=== PATIENT | male | born 1935 | race Two or more races ===

== ENCOUNTER 2017-05-25 09:01 | Inpatient (IN) | payer MEDICARE ==
[~2017-05-25] VITALS: Ht 177.8 cm; Wt 87.1 kg
--- NOTE | 2017-05-25 09:11 | NUR ---
[facility]A FROM A [facility] DT SOB X 2 DAYS. PATIENT IS SATING 89% ON ROOM AIR. PATIENT IS AAO4. APPEARS IN MILD DISTRESS. PT WAS PLACED ON O2 VIA NC- O2 SAT 94%. PATIENT IS AFEBRILE. VSS.
--- NOTE | 2017-05-25 09:12 | NUR ---
MD CHU AT
[2017-05-25] MEDS ORDERED: ALBUTEROL FS 2.5 MG/3 ML VIAL.NEB ONE (09:28)
[2017-05-25] MEDS ORDERED: IPRATROPIUM NEB FS 0.5 MG/2.5 ML AMPUL.NEB ONE (09:28)
[2017-05-25 09:29] LABS: BASOPHILS % (AUTO) 0.7 % (0.0-2.0); EOSINOPHILS # (AUTO) 0.3 /CMM (0.0-0.7); EOSINOPHILS % (AUTO) 4.5 % (0.0-6.0); HEMATOCRIT 42 % (39-51); HEMOGLOBIN 13.6 g/dL (13.5-17.5); LYMPHOCYTES # (AUTO) 1.7 /CMM (0.8-4.8); LYMPHOCYTES % (AUTO) 25.9 % (20.0-44.0); MEAN CORPUSCULAR HEMOGLOBIN 33 PG (26.0-33.0); MEAN CORPUSCULAR HGB CONC 32 g/dl (31.0-36.0); MEAN CORPUSCULAR VOLUME 103 fL (80-96); MONOCYTES # (AUTO) 0.7 /CMM (0.1-1.30); MONOCYTES % (AUTO) 10.1 % (2.0-12.0); NEUTROPHILS # (AUTO) 3.8 /CMM (1.8-8.9); NEUTROPHILS % (AUTO) 58.8 % (43.0-81.0); PLATELET COUNT (AUTO) 111 /CMM (150-450); RDW COEFFICIENT OF VARIATION 18.1 (11.5-15.0); RED BLOOD CELL COUNT(AUTO) 4.07 MIL/uL (4.5-6.0); WHITE BLOOD COUNT (AUTO) 6.5 K/uL (4.3-11.0)
[2017-05-25] MEDS ORDERED: IPRATROPIUM NEB FS 0.5 MG/2.5 ML AMPUL.NEB NEB ONE (09:30)
[2017-05-25] MEDS ORDERED: ALBUTEROL FS 2.5 MG/3 ML VIAL.NEB NEB ONE (09:30)
[2017-05-25] MEDS ORDERED: METF500T4 PO (09:41)
[2017-05-25] MEDS ORDERED: WARF5TAB6 PO (09:41)
[2017-05-25] MEDS ORDERED: LEVO150T8 PO (09:41)
[2017-05-25] MEDS ORDERED: DIGO125T PO (09:41)
[2017-05-25] MEDS ORDERED: POTA20TA83 PO (09:41)
[2017-05-25] MEDS ORDERED: CARI350T27 PO (09:41)
[2017-05-25] MEDS ORDERED: FURO40TA5 PO (09:41)
[2017-05-25] MEDS ORDERED: ALLO300T2 PO (09:41)
[2017-05-25] MEDS ORDERED: CARV25TA2 PO (09:41)
[2017-05-25 09:47] LABS: INR 3.95 (0.87-1.13); PROTHROMBIN TIME 41.1 SECS (9.5-12.7)
[2017-05-25] MEDS ORDERED: NITROGLYCERIN PACKET 1 GM PACKET TD ONE (10:00)
[2017-05-25] MEDS ORDERED: FUROSEMIDE 40 MG/4 ML VIAL IV ONE (10:00)
--- NOTE | 2017-05-25 10:00 | NUR ---
RN NOTES REPORT RECEIVED FROM INSTRUMENTATION TECHNOLOGISTTONY MEZA. WILL WAIT FOR PATIENT ON UNIT.
[2017-05-25] MEDS ORDERED: FUROSEMIDE 40 MG/4 ML VIAL ONE (10:02)
[2017-05-25] MEDS ORDERED: NITROGLYCERIN PACKET 1 GM PACKET ONE (10:03)
[2017-05-25 10:09] LABS: CARBON DIOXIDE 36 mmol/L (21-32); CHLORIDE 104 mmol/L (98-107); CREATININE 1.1 mg/dL (0.6-1.3); GLUCOSE 110 mg/dL (74-106); POTASSIUM 4.6 mmol/L (3.5-5.1); SODIUM SERUM 139 mmol/L (136-145); UREA NITROGEN, BLOOD 22 mg/dL (7-18)
--- NOTE | 2017-05-25 10:14 | NUR ---
REPORT GIVEN TO TONY PIERCE FOR LAYNE
[2017-05-25 10:16] LABS: TROPONIN I 0.035 ng/mL (0.00-0.056)
[2017-05-25 10:21] LABS: ALANINE AMINOTRANSFERASE 33 U/L (12-78); ALBUMIN 3.5 g/dL (3.4-5.0); ALKALINE PHOSPHATASE 98 U/L (46-116); ASPARTATE AMINOTRANSFERASE 26 U/L (15-37); B-TYPE NATRIURETIC PEPTIDE 4161 PG/ML (0-125); BILIRUBIN,DIRECT 0.2 mg/dL (0.0-0.2); BILIRUBIN,TOTAL 0.8 mg/dL (0.2-1.0)
--- NOTE | 2017-05-25 10:30 | NUR ---
URINE SAMPLE SENT TO LAB
[2017-05-25 10:35] LABS: APPEARANCE,URINE Clear (CLEAR); BILIRUBIN,URINE Negative (NEGATIVE); BLOOD, URINE Small Ery/uL (NEGATIVE); COLOR,URINE Yellow (YELLOW); KETONES,URINE Negative (NEGATIVE); LEUKOCYTE ESTERASE ,URINE Negative (NEGATIVE); NITRITE, URINE Negative (NEGATIVE); PH,URINE 5.5 (5.0-8.0); PROTEIN,URINE Trace mg/dl (NEGATIVE); UGLUCOSE Negative (NEGATIVE); UROBILINOGEN,URINE 0.2 EU/dL (0.2)
[2017-05-25 10:40] LABS: BACTERIA,URINE None seen /HPF (None Seen); SQUAMOUS EPITHELIAL CELL,UR Few /HPF (None Seen); WBC,URINE 0-3 /HPF (0-3)
--- NOTE | 2017-05-25 11:14 | NUR ---
BELONGINGS CHECKED AND ACCOUNTED WITH EMT MAI FITZPATRICK NOTED WITH [employer] $2660 WORTH- PLACED IN A SECURED ABD SEALED BAG, CONFIRMED AND SIGNED BY PATIENT AND GIVEN TO NURSING BRANCH OR DEPARTMENT CHIEF LIBRARIAN
--- NOTE | 2017-05-25 11:28 | NUR ---
PATIENT TRANSPORTED TO TELE. S
--- NOTE | 2017-05-25 11:45 | NUR ---
RN OPENING NOTES PATIENT RECEIVED ON UNIT. PATIENT AOX3. DENIES SOB. RESPIRATIONS EVEN AND UNLABORED. NO ACUTE DISTRESS NOTED. SATURATING ADEQUATELY ON ROOM AIR. ALL BELONGINGS DOCUMENT. CALLED DR. TINEO AND PAGED TO NOTIFY OF PATIENTS ADMISSION AND NEED FOR MED RECON. BED LOCKED IN THE LOWEST POSITION. SIDE RAILS UP X2. WILL CONTINUE TO MONITOR ASSESS AND EDUCATE.
[2017-05-25 12:00] VITALS: BP 142/77
--- NOTE | 2017-05-25 15:30 | NUR ---
RN NOTES CALLED DR. TINEO AND DISCUSSED PATIENT MEDICATIONS. MED RECON DONE. ORDERS GIVEN FOR LASIX IV 20MG BID. ACCUCHECK ACHS MODERATE SLIDING SCALE.
[2017-05-25] MEDS ORDERED: DEXTROSE 50%-WATER 50 ML DISP.SYRIN IV PRN (16:00)
[2017-05-25 16:58] VITALS: BP 122/74
[2017-05-25] MEDS ORDERED: BLOOD SUGAR DIAGNOSTIC 1 EACH STRIP VI SCH (17:30)
[2017-05-25] MEDS: POTASSIUM CHLORIDE 20 MEQ TAB.PRT.SR PO SCH (17:57)
[2017-05-25] MEDS: FUROSEMIDE 20 MG/2 ML VIAL IV SCH (17:57)
[2017-05-25] MEDS: BLOOD SUGAR DIAGNOSTIC 1 EACH STRIP IN SCH ×2 (17:59→22:15)
[2017-05-25] MEDS ORDERED: ACETAMINOPHEN 650 MG/20.3 ML UDC NG PRN (19:00)
[2017-05-25] MEDS ORDERED: IPRATROPIUM NEB FS 0.5 MG/2.5 ML AMPUL.NEB NEB PRN (19:00)
[2017-05-25] MEDS ORDERED: ONDANSETRON HCL/PF 4 MG/2 ML VIAL IV PRN (19:00)
[2017-05-25] MEDS ORDERED: ALBUTEROL FS 2.5 MG/0.5 ML VIAL.NEB NEB PRN (19:00)
--- NOTE | 2017-05-25 19:30 | NUR ---
RN INITIAL NOTES RECEIVED PT, AWAKE IN BED, ALERT AND ORIENTED X 4, NO SOB NOTED, BREATHING EVEN AND UNLABORED, NO C/O PAIN AT THIS TIME. PT UNDER TELE WITH MELINDA, SR @ 63. ALL PATIENT'S NEEDS ATTENDED TO, CALL LIGHT PLACED WITHIN EASY REACH. WILL CONTINUE TO MONITOR.
--- NOTE | 2017-05-25 19:44 | NUR ---
RN CLOSING NOTES PATIENT IS AOX4. ALL NEEDS MET ALL MEDS GIVEN APPROPRIATE. SATURATING ADEQUATELY ON RA. RESPIRATIONS EVEN AND UNLABORED. NO ACUTE DISTRESS. ON TELE READING AFASTON RAMÍREZ. REPORTED TO NIGHT RN AND MD AWARE. WILL GIVE REPORT TO NIGHT RN FOR LAYNE.
[2017-05-25 20:00] VITALS: BP 102/56
[2017-05-25] MEDS: CARVEDILOL 12.5 MG TABLET PO SCH (21:00)
[2017-05-25] MEDS: *INSULIN REGULAR(HUMULIN R)HUM 100 UNIT/ML VIAL SQ PRN (22:19)
--- NOTE | 2017-05-25 23:49 | NUR ---
RN NOTE CALLED RADIOLOGY DEPT REGARDING PT'S ORDER FOR AN ECHOCARDIOGRAM. PER RADIOLOGY DEPT, THEY RECEIVED THE ORDER AND WILL PERFORM THE ORDER ACCORDINGLY IT IS A ROUTINE ORDER.
[2017-05-26] VITALS: BP 114/67
[2017-05-26 04:00] VITALS: BP 119/63
[2017-05-26] MEDS: BLOOD SUGAR DIAGNOSTIC 1 EACH STRIP IN SCH ×4 (06:35→21:12)
--- NOTE | 2017-05-26 06:52 | NUR ---
RN CLOSING NOTES PATIENT IN BED, ALERT AND ORIENTED X 3, VERBALLY RESPONSIVE, WITH NO C/O PAIN, IN NO ACUTE DISTRESS. NOTED WITH NO SOB, BREATHING EVEN AND UNLABORED, RECEIVING 02 VIA NC @ 3LPM, O2 SAT @ 95%. UNDER TELE WITH AFIB @ 60 BPM WITH OCCASIONAL PVC. PT WITH SL ON RFA, INTACT AND PATENT. BLOOD SUGAR @ 83 MG/DL WITH NO INULIN NEEDED PER [facility] ORDER. ALL PATIENT'S NEEDS ATTENDED TO, PLACED CALL LIGHT WITHIN EASY REACH. WILL ENDORSE TO AM NURSE FOR CONTINUITY OF CARE.
[2017-05-26] MEDS: PANTOPRAZOLE 40 MG TABLET.DR PO SCH (07:04)
[2017-05-26] MEDS: LEVOTHYROXINE SODIUM 75 MCG TABLET PO SCH (07:04)
[2017-05-26 07:07] LABS: INR 3.37 (0.87-1.13); PROTHROMBIN TIME 35.5 SECS (9.5-12.7)
[2017-05-26 07:18] LABS: BASOPHILS # (AUTO) 0.1 /CMM (0.0-0.2); BASOPHILS % (AUTO) 0.8 % (0.0-2.0); EOSINOPHILS # (AUTO) 0.3 /CMM (0.0-0.7); EOSINOPHILS % (AUTO) 4.4 % (0.0-6.0); HEMATOCRIT 41 % (39-51); HEMOGLOBIN 13.5 g/dL (13.5-17.5); LYMPHOCYTES # (AUTO) 1.5 /CMM (0.8-4.8); LYMPHOCYTES % (AUTO) 22.7 % (20.0-44.0); MEAN CORPUSCULAR HEMOGLOBIN 34 PG (26.0-33.0); MEAN CORPUSCULAR HGB CONC 33 g/dl (31.0-36.0); MEAN CORPUSCULAR VOLUME 106 fL (80-96); MONOCYTES # (AUTO) 0.6 /CMM (0.1-1.30); MONOCYTES % (AUTO) 9.5 % (2.0-12.0); NEUTROPHILS # (AUTO) 4.3 /CMM (1.8-8.9); NEUTROPHILS % (AUTO) 62.6 % (43.0-81.0); PLATELET COUNT (AUTO) 103 /CMM (150-450); RDW COEFFICIENT OF VARIATION 18.8 (11.5-15.0); RED BLOOD CELL COUNT(AUTO) 3.91 MIL/uL (4.5-6.0); WHITE BLOOD COUNT (AUTO) 6.8 K/uL (4.3-11.0)
[2017-05-26 07:20] LABS: CALCIUM, SERUM 9.1 mg/dL (8.5-10.1); CARBON DIOXIDE 39 mmol/L (21-32); CHLORIDE 101 mmol/L (98-107); CREATININE 1.3 mg/dL (0.6-1.3); GLUCOSE 82 mg/dL (74-106); POTASSIUM 4.3 mmol/L (3.5-5.1); SODIUM SERUM 139 mmol/L (136-145); UREA NITROGEN, BLOOD 23 mg/dL (7-18)
[2017-05-26 07:21] LABS: ALANINE AMINOTRANSFERASE 36 U/L (12-78); ALBUMIN 3.4 g/dL (3.4-5.0); ALKALINE PHOSPHATASE 101 U/L (46-116); ASPARTATE AMINOTRANSFERASE 30 U/L (15-37); BILIRUBIN,TOTAL 0.9 mg/dL (0.2-1.0); TOTAL PROTEIN, SERUM 6.8 g/dL (6.4-8.2)
[2017-05-26 07:34] LABS: CHOLESTEROL 169 mg/dL (<200); HDL CHOLESTEROL 57 mg/dL (40-60); LDL 100 mg/dL (0-99); THYROID STIMULATING HORMONE 0.628 uIU/mL (0.358-3.74); TRIGLYCERIDES 61 mg/dL (30-150); URIC ACID 4.4 mg/dL (2.6-7.2)
--- NOTE | 2017-05-26 07:57 | NUR ---
CORK GRINDER OPENING NOTES PT RECEIVED A&0X3. TELE AFIB 60, ENDORSED WITH OCCASIONAL PVC. PT WITH O2 VIA NC AT 3LPM, SAO2 91%, PT REPORTING NO SOB, AUSCULTATED CONGESTION IN LOWER LOBES. PT REPORTING NO PAIN. PT WITH IVC G#18 AT R FOREARM INTACT AND SALINE FLUSH PATENT. BED IN LOWEST LOCKED POSITION WITH HANDRAILSX2 AND CALL KAYE WITHIN REACH. PT BRIEFED ON TODAY'S POC, PT IS WITHOUT CONCERN OR COMPLAINT AT THIS TIME.
[2017-05-26 08:00] VITALS: BP 116/73
[2017-05-26] MEDS: CARVEDILOL 12.5 MG TABLET PO SCH ×2 (08:49→20:50)
[2017-05-26] MEDS: ALLOPURINOL 100 MG TABLET PO SCH (08:49)
[2017-05-26] MEDS: DIGOXIN 0.125 MG TABLET PO SCH (08:49)
[2017-05-26] MEDS: FUROSEMIDE 20 MG/2 ML VIAL IV SCH ×2 (08:49→18:09)
[2017-05-26] MEDS: POTASSIUM CHLORIDE 20 MEQ TAB.PRT.SR PO SCH ×2 (08:49→18:09)
[2017-05-26] MEDS: LOSARTAN POTASSIUM 50 MG TABLET PO SCH (12:00)
[2017-05-26 12:07] LABS: TROPONIN I 0.03 ng/mL (0.00-0.056)
[2017-05-26] MEDS: ATORVASTATIN 10 MG TABLET PO SCH (12:42)
[2017-05-26] MEDS: INSULIN REGULAR, HUMAN 100 UNIT/ML 3 ML VIAL SQ PRN (12:45)
[2017-05-26 13:15] LABS: MAGNESIUM 1.8 mg/dL (1.8-2.4)
[2017-05-26 16:00] VITALS: BP 111/72
--- NOTE | 2017-05-26 18:42 | NUR ---
BANK CREDIT CARD COLLECTION CLERK CLOSING NOTES PT A&0X3 RESTING IN BED. TELE: AFIB HR 72. PT WITH O2 VIA NC AT 3L/PM NO S/S OF RESP DISTRESS AND NO REPORTED SOB AT THIS TIME. PT REPORTING NO PAIN. PT WITH IVC G#18 AT R FORE ARM INTACT AND SALINE LOCKED. BED IN LOWEST LOCKED POSITION WITH HANDRAILSX3 AND CALL KAYE WITHIN REACH. ALL DAY DAY NURSE DUTIES ATTENDED TO, PT IS WITHOUT CONCERN OR COMPLAINT AT THIS TIME. WILL ENDORSE TO NIGHT NURSE.
--- NOTE | 2017-05-26 19:30 | NUR ---
RN OPENING NOTES PT RESTING IN BED. NO S/S OF PAIN OR DISTRESS AT THIS TIME. NO COMPLAINTS OF SOB. PT HAS A RIGHT FOREARM IV #18 INTACT AND PATENT. PT IS TELE MONITORED AFIB. PT HAS 3L O2 VIA NC, PT TOLERATING WELL. SAFETY PRECAUTIONS IN PLACE. BED IN LOW LOCKED POSITION X3 SIDE RAILS UP. CALL LIGHT WITHIN REACH. WILL CONTINUE TO MONITOR.
[2017-05-26 20:00] VITALS: BP 106/66
[2017-05-26] MEDS ORDERED: WARFARIN SODIUM 2 MG TABLET PO SCH (21:00)
--- NOTE | 2017-05-26 21:35 | NUR ---
ENDORSED PATIENT TO TONY CHEN. PT TRANSFERRED TO ROOM 206-1. PT FAMILY CONTACTED. Addendum: 05/26/17 at 2141 by MAHESH HALL RN INCORRECT PATIENT NOTE.
[2017-05-27] VITALS: BP 115/57
[2017-05-27 04:00] VITALS: BP 110/72
[2017-05-27] MEDS: BLOOD SUGAR DIAGNOSTIC 1 EACH STRIP IN SCH ×4 (06:26→21:19)
--- NOTE | 2017-05-27 06:56 | NUR ---
RN CLOSING NOTES PT RESTING IN BED. NO S/S OF PAIN OR DISTRESS AT THIS TIME. NO COMPLAINTS OF SOB. PT HAS A LEFT FOREARM IV #22 INTACT AND PATENT. PT IS TELE MONITORED AFIB RATE 75. PT HAS 3L O2 VIA NC, PT TOLERATING WELL. SAFETY PRECAUTIONS IN PLACE. BED IN LOW LOCKED POSITION X3 SIDE RAILS UP. CALL LIGHT WITHIN REACH. WILL ENDORSE TO DAY SHIFT NURSE FOR CONTINUITY OF CARE.
--- NOTE | 2017-05-27 07:51 | NUR ---
REDUCING MACHINE OPERATOR OPENING NOTES PT A&0X3 RESTING IN BED AND EASILY WOKEN BY NAME. REQUESTING MORE SLEEP. PT WITH O2 VIA NC AT 2LPM, NO SOB. PT REPORTING NO PAIN. PT WITH IVC G#22 AT L FOREARM INTACT AND OPERATIONAL. BED IN LOWEST LOCKED POSITION WITH HANDRAILSX2 AND CALL KAYE WITHIN REACH. PT BRIEFED ON TODAY'S POC AND IS WITHOUT CONCERN OR COMPLAINT AT THIS TIME.
--- NOTE | 2017-05-27 07:54 | NUR ---
MS RN NOTES. D/C TELE PER .
[2017-05-27 08:00] VITALS: BP 116/62
[2017-05-27 08:00] LABS: BASOPHILS % (AUTO) 0.2 % (0.0-2.0); EOSINOPHILS # (AUTO) 0.3 /CMM (0.0-0.7); EOSINOPHILS % (AUTO) 3.1 % (0.0-6.0); HEMATOCRIT 38 % (39-51); HEMOGLOBIN 12.8 g/dL (13.5-17.5); LYMPHOCYTES # (AUTO) 1.5 /CMM (0.8-4.8); LYMPHOCYTES % (AUTO) 15.7 % (20.0-44.0); MEAN CORPUSCULAR HEMOGLOBIN 35 PG (26.0-33.0); MEAN CORPUSCULAR HGB CONC 34 g/dl (31.0-36.0); MEAN CORPUSCULAR VOLUME 103 fL (80-96); MONOCYTES # (AUTO) 0.9 /CMM (0.1-1.30); NEUTROPHILS # (AUTO) 6.6 /CMM (1.8-8.9); PLATELET COUNT (AUTO) 106 /CMM (150-450); RDW COEFFICIENT OF VARIATION 18.1 (11.5-15.0); RED BLOOD CELL COUNT(AUTO) 3.65 MIL/uL (4.5-6.0); WHITE BLOOD COUNT (AUTO) 9.3 K/uL (4.3-11.0)
[2017-05-27 08:42] LABS: CARBON DIOXIDE 39 mmol/L (21-32); CHLORIDE 97 mmol/L (98-107); CREATININE 1.1 mg/dL (0.6-1.3); GLUCOSE 86 mg/dL (74-106); POTASSIUM 3.8 mmol/L (3.5-5.1); SODIUM SERUM 137 mmol/L (136-145); UREA NITROGEN, BLOOD 22 mg/dL (7-18)
[2017-05-27] MEDS: PANTOPRAZOLE 40 MG TABLET.DR PO SCH (08:42)
[2017-05-27] MEDS: LEVOTHYROXINE SODIUM 75 MCG TABLET PO SCH (08:42)
[2017-05-27] MEDS: POTASSIUM CHLORIDE 20 MEQ TAB.PRT.SR PO SCH ×2 (08:42→17:35)
[2017-05-27] MEDS: CARVEDILOL 12.5 MG TABLET PO SCH ×2 (08:45→21:00)
[2017-05-27] MEDS: LOSARTAN POTASSIUM 50 MG TABLET PO SCH (08:45)
[2017-05-27] MEDS: DIGOXIN 0.125 MG TABLET PO SCH (08:46)
[2017-05-27] MEDS: FUROSEMIDE 40 MG TABLET PO SCH (08:46)
[2017-05-27] MEDS: ATORVASTATIN 10 MG TABLET PO SCH (08:46)
[2017-05-27] MEDS: ALLOPURINOL 100 MG TABLET PO SCH (08:47)
[2017-05-27] MEDS: INSULIN REGULAR, HUMAN 100 UNIT/ML 3 ML VIAL SQ PRN (12:09)
[2017-05-27 13:39] LABS: INR 2.35 (0.87-1.13); PROTHROMBIN TIME 24.6 SECS (9.5-12.7)
[2017-05-27 16:00] VITALS: BP 106/53
[2017-05-27] MEDS ORDERED: WARFARIN SODIUM 2 MG TABLET PO SCH (17:00)
--- NOTE | 2017-05-27 18:45 | NUR ---
MS RN CLOSING NOTES PT A&0X3 RESTING IN BED. PT WITH O2 VIA NC AT 3L/PM NO S/S OF RESP DISTRESS. PT REPORTING NO PAIN. PT WITH IVC G#18 AT R FORE ARM INTACT AND SALINE LOCKED. BED IN LOWEST LOCKED POSITION WITH HANDRAILSX3 AND CALL KAYE WITHIN REACH. ALL DAY DAY NURSE DUTIES ATTENDED TO, PT IS WITHOUT CONCERN OR COMPLAINT AT THIS TIME. WILL ENDORSE TO NIGHT NURSE.
--- NOTE | 2017-05-27 19:15 | NUR ---
RN OPENING NOTES PT RESTING IN BED. NO S/S OF PAIN OR DISTRESS AT THIS TIME. NO COMPLAINTS OF SOB. PT HAS A LEFT FOREARM IV #22 INTACT AND PATENT. PT HAS 3L O2 VIA NC, PT TOLERATING WELL. SAFETY PRECAUTIONS IN PLACE. BED IN LOW LOCKED POSITION X3 SIDE RAILS UP. CALL LIGHT WITHIN REACH. WILL CONTINUE TO MONITOR.
[2017-05-27 22:14] VITALS: BP 104/57
[2017-05-27] MEDS: *INSULIN REGULAR(HUMULIN R)HUM 100 UNIT/ML VIAL SQ PRN (22:51)
[2017-05-28] MEDS: BLOOD SUGAR DIAGNOSTIC 1 EACH STRIP IN SCH ×4 (06:20→21:25)
--- NOTE | 2017-05-28 06:50 | NUR ---
RN CLOSING NOTES PT RESTING IN BED. NO SIGNIFICANT CHANGES OVERNIGHT. NO S/S OF PAIN OR DISTRESS AT THIS TIME. NO COMPLAINTS OF SOB. PT HAS A LEFT FOREARM IV #22 INTACT AND PATENT. PT HAS 2L O2 VIA NC, PT TOLERATING WELL. SAFETY PRECAUTIONS IN PLACE. BED IN LOW LOCKED POSITION X3 SIDE RAILS UP. CALL LIGHT WITHIN REACH. WILL ENDORSE TO DAY SHIFT NURSE FOR CONTINUITY OF CARE.
[2017-05-28 08:00] VITALS: BP 127/76
--- NOTE | 2017-05-28 08:25 | NUR ---
RN OPENING NOTES RECEIVED PT. PT IS STABLE AND RESTING IN BED. A/OX3. NO S/S OF RESPIRATORY DISTRESS OR LABORED BREATHING. PT IS ON 2L O2 VIA NC WITH O2 SAT ABOVE 92%. IV ACCESS LOCATED ON LEFT FOREARM 22G. SAFETY MEASURES IN PLACE, CALL LIGHT WITHIN REACH. WILL CONTINUE TO MONITOR.
[2017-05-28] MEDS: POTASSIUM CHLORIDE 20 MEQ TAB.PRT.SR PO SCH ×2 (08:57→16:45)
[2017-05-28] MEDS: LEVOTHYROXINE SODIUM 75 MCG TABLET PO SCH (08:58)
[2017-05-28] MEDS: DIGOXIN 0.125 MG TABLET PO SCH (08:58)
[2017-05-28] MEDS: ATORVASTATIN 10 MG TABLET PO SCH (08:58)
[2017-05-28] MEDS: PANTOPRAZOLE 40 MG TABLET.DR PO SCH (08:58)
[2017-05-28] MEDS: ALLOPURINOL 100 MG TABLET PO SCH (08:58)
[2017-05-28] MEDS: LOSARTAN POTASSIUM 50 MG TABLET PO SCH (08:58)
[2017-05-28] MEDS: FUROSEMIDE 40 MG TABLET PO SCH (08:58)
[2017-05-28] MEDS: CARVEDILOL 12.5 MG TABLET PO SCH ×2 (08:58→21:16)
--- NOTE | 2017-05-28 10:05 | NUR ---
RN NOTES /.AM BP MEDS HELD DUE TO BP MEASUREMENT OF 127/76.
[2017-05-28] MEDS: INSULIN REGULAR, HUMAN 100 UNIT/ML 3 ML VIAL SQ PRN ×2 (12:40→16:54)
[2017-05-28 16:00] VITALS: BP 121/63
[2017-05-28] MEDS: LEVOFLOXACIN (500MG) 500 MG TABLET PO SCH (16:45)
[2017-05-28] MEDS: ALBUTEROL FS 2.5 MG/0.5 ML VIAL.NEB NEB SCH ×2 (17:10→21:04)
[2017-05-28] MEDS: IPRATROPIUM NEB FS 0.5 MG/2.5 ML AMPUL.NEB NEB SCH ×2 (17:10→21:05)
--- NOTE | 2017-05-28 17:31 | NUR ---
[facility]G REPORTED TO NURSE (ANNAMARIA).
--- NOTE | 2017-05-28 18:58 | NUR ---
RN CLOSING NOTES PT IS STABLE AND RESTING IN BED. NO S/S OF DISTRESS OR SOB. NO C/O PAIN AT THIS TIME. PT INR ORDERED STAT FOR PT IN ORDER TO ADMINISTER COUMADIN. AWAITING LAB. ALL PT NEEDS ANTICIPATED AND MET. SAFETY MEASURES IN PLACE. CALL LIGHT WITHIN REACH. WILL ENDORSE TO COOK SPECIALTY FOREIGN FOOD FOR LAYNE.
[2017-05-28 19:23] LABS: INR 3.27 (0.87-1.13); PROTHROMBIN TIME 34.4 SECS (9.5-12.7)
--- NOTE | 2017-05-28 19:30 | NUR ---
RN OPENING NOTES PATIENT IS IN BED, ALERT AND ORIENTEDX3. VS STABLE. NO C/O PAIN AT THIS TIME. NO SOB NOTED. RESPIRATIONS EVEN AND UNLABORED. IV ACCESS ON LEFT FA 22G SL PATENT AND INTACT, FLUSHING WELL WITH NS , NO REDNESS OR INFILTRATION NOTED. BED IN LOW AND LOCKED POSITION, SIDE RAILSX2. CALL LIGHT WITHIN EASY REACH. WILL CONTINUE TO MONITOR AND ACCES DURING THE SHIFT.
[2017-05-28 20:00] VITALS: BP 115/60
[2017-05-28] MEDS: *INSULIN REGULAR(HUMULIN R)HUM 100 UNIT/ML VIAL SQ PRN (21:30)
--- NOTE | 2017-05-28 21:30 | NUR ---
RN NOTES BS 113. NO INSULIN ADMINISTERED. CONTINUE TO MONITOR.
[2017-05-28 22:01] VITALS: BP 115/60
[2017-05-29] MEDS: IPRATROPIUM NEB FS 0.5 MG/2.5 ML AMPUL.NEB NEB SCH ×4 (01:03→13:37)
[2017-05-29] MEDS: ALBUTEROL FS 2.5 MG/0.5 ML VIAL.NEB NEB SCH ×3 (01:03→13:38)
--- NOTE | 2017-05-29 06:30 | NUR ---
RN NOTES TRANSFERRED PATIENT TO [facility] ROOM 209 IN STABLE CONDITION. REPORT GIVEN TO RN MIRIAM.
[2017-05-29 06:37] LABS: BASOPHILS % (AUTO) 0.7 % (0.0-2.0); EOSINOPHILS # (AUTO) 0.3 /CMM (0.0-0.7); EOSINOPHILS % (AUTO) 4.5 % (0.0-6.0); HEMATOCRIT 40 % (39-51); HEMOGLOBIN 13.3 g/dL (13.5-17.5); LYMPHOCYTES # (AUTO) 1.4 /CMM (0.8-4.8); LYMPHOCYTES % (AUTO) 20.7 % (20.0-44.0); MEAN CORPUSCULAR HEMOGLOBIN 35 PG (26.0-33.0); MEAN CORPUSCULAR HGB CONC 34 g/dl (31.0-36.0); MEAN CORPUSCULAR VOLUME 103 fL (80-96); MONOCYTES # (AUTO) 0.7 /CMM (0.1-1.30); NEUTROPHILS # (AUTO) 4.2 /CMM (1.8-8.9); NEUTROPHILS % (AUTO) 63.1 % (43.0-81.0); PLATELET COUNT (AUTO) 118 /CMM (150-450); RDW COEFFICIENT OF VARIATION 17.9 (11.5-15.0); RED BLOOD CELL COUNT(AUTO) 3.85 MIL/uL (4.5-6.0); WHITE BLOOD COUNT (AUTO) 6.7 K/uL (4.3-11.0)
[2017-05-29 06:44] LABS: INR 2.51 (0.87-1.13); PROTHROMBIN TIME 26.4 SECS (9.5-12.7)
[2017-05-29 06:51] LABS: CALCIUM, SERUM 9.2 mg/dL (8.5-10.1); CARBON DIOXIDE 38 mmol/L (21-32); CHLORIDE 96 mmol/L (98-107); CREATININE 1.1 mg/dL (0.6-1.3); GLUCOSE 100 mg/dL (74-106); SODIUM SERUM 136 mmol/L (136-145); UREA NITROGEN, BLOOD 26 mg/dL (7-18)
--- NOTE | 2017-05-29 07:10 | NUR ---
RN OPENING NOTES PATIENT AOX3. NONLABORED BREATHING NOTED ON ROOM AIR. NO SIGNS OF DISTRESS NOTED. PATIENT DENIES PAIN AT THE MOMENT. NO SIGNS OF DISTRESS NOTED. IV ACCESS ON LEFT FA 22 PATENT AND INTACT. BED IN LOWEST LOCKED POSITION. CALL LIGHT WITHIN REACH. WILL CONTINUE TO MONITOR
[2017-05-29] MEDS: BLOOD SUGAR DIAGNOSTIC 1 EACH STRIP IN SCH ×2 (07:52→12:37)
[2017-05-29 08:00] VITALS: BP 116/68
[2017-05-29] MEDS: FUROSEMIDE 40 MG TABLET PO SCH (08:08)
[2017-05-29] MEDS: LEVOTHYROXINE SODIUM 75 MCG TABLET PO SCH (08:08)
[2017-05-29] MEDS: ATORVASTATIN 10 MG TABLET PO SCH (08:09)
[2017-05-29] MEDS: ALLOPURINOL 100 MG TABLET PO SCH (08:09)
[2017-05-29] MEDS: POTASSIUM CHLORIDE 20 MEQ TAB.PRT.SR PO SCH (08:09)
[2017-05-29] MEDS: PANTOPRAZOLE 40 MG TABLET.DR PO SCH (08:10)
[2017-05-29] MEDS: DIGOXIN 0.125 MG TABLET PO SCH (08:10)
[2017-05-29] MEDS: CARVEDILOL 12.5 MG TABLET PO SCH (10:00)
[2017-05-29] MEDS: LOSARTAN POTASSIUM 50 MG TABLET PO SCH (10:00)
[2017-05-29] MEDS: INSULIN REGULAR, HUMAN 100 UNIT/ML 3 ML VIAL SQ PRN (12:36)
--- NOTE | 2017-05-29 15:12 | NUR ---
PATIENT REFUSED ABG. PT STATES "I AM LEAVING I DON'T WANT TO." ORDER CANCELED.
--- NOTE | 2017-05-29 15:27 | NUR ---
RN NOTES: PATIENT'S MONEY FROM [employer] RETURNED TO PATIENT AND COUNTED IN FRONT OF HIM WITH RN ANABELLE ELDER OF 2660$ . ALL BELONGINGS GIVEN TO PATIENT
[2017-05-29 16:00] VITALS: BP 112/70
[2017-05-29] MEDS: LEVOFLOXACIN (500MG) 500 MG TABLET PO SCH (16:31)
--- NOTE | 2017-05-29 17:15 | NUR ---
RN CLOSING NOTES PATIENT DISCHARGED TO [facility] PER DR SHEN ORDERS. REPORT GIVEN TO ANANDA. ALL BELONGINGS SENT WITH PATIENT, IV LINE REMOVED. VS WNL. PATIENT EDUCATED ON EXISTCARE AND PRESCRIPTIONS, VERBALIZED UNDERSTANDING. PATIENT REFUSED TO TAKE COUMADIN AND POSTASSIUM, STATING THAT HE JUST WANTS TO LEAVE, BENEFITS AND RISKS EXPLAINED IN LENGTH, PATIENT STILL REFUSED. PATIENT REFUSED FLU VACCINE WELL. PRESCRIPTIONS, EXISTCARE, AND LAB WORK SENT WITH PATIENT.SKIN PICTURES PLACED IN CHART. PATIENT LEFT WITH AMBULANCE
== END 2017-05-29 17:15 | DRG 291 ==
LOC: ER 09:03 → TELE 10:13 → MED 05-27 08:05 → MEDSG2 05-29 06:11
PROVIDERS: ADMIT Internal Medicine; ATTEND Internal Medicine
DX: I11.0 Hypertensive heart disease with heart failure (principal); J96.00 Acute respiratory failure, unspecified whether with hypoxia or hypercapnia; J86.9 Pyothorax without fistula; J18.9 Pneumonia, unspecified organism; J90 Pleural effusion, not elsewhere classified; I27.20 Pulmonary hypertension, unspecified; J94.2 Hemothorax; E11.9 Type 2 diabetes mellitus without complications; I48.91 Unspecified atrial fibrillation; B35.1 Tinea unguium; J98.11 Atelectasis; Z79.01 Long term (current) use of anticoagulants; E03.9 Hypothyroidism, unspecified; E78.5 Hyperlipidemia, unspecified; I25.10 Atherosclerotic heart disease of native coronary artery without angina pectoris; I50.33 Acute on chronic diastolic (congestive) heart failure; Z79.4 Long term (current) use of insulin; I25.2 Old myocardial infarction; Z95.1 Presence of aortocoronary bypass graft; Z95.2 Presence of prosthetic heart valve; M54.5 Low back pain; M10.9 Gout, unspecified; M43.8X4 Other specified deforming dorsopathies, thoracic region; K80.20 Calculus of gallbladder without cholecystitis without obstruction; K22.8 Other specified diseases of esophagus; Z79.899 Other long term (current) drug therapy
CPT/HCPCS: 36415; 36600; 71010-TC; 71250-TC; 80048-TC; 80053-TC; 80061-TC; 80076-TC; 80162-TC; 81000-TC; 82306; 82803-TC; 82962-TC; 83605-TC; 83735-TC; 83880; 84439-TC; 84443-TC; 84484-TC; 84550-TC; 85025-TC; 85610-TC; 85730-TC; 87040-TC; 87081-TC; 87086-TC; 93307-TC; A4606; J1815; J1940; Z7610